=== PATIENT | female | born 1970 | race Caucasian/White ===

== ENCOUNTER 2025-04-23 22:52 | Emergency (ER) | payer OTHER, SELFPAY ==
[2025-04-23 22:53] VITALS: BP 130/89
[2025-04-23 23:05] VITALS: BP 124/77
[2025-04-23 23:16] VITALS: BMI 27.9
[2025-04-23 23:25] LABS: Hematocrit 33.1 % (37.0-47.0); Hemoglobin 11.2 g/dL (12.0-16.0); Mean Corp Hgb Conc. 33.8 g/dL (33.0-37.0); Mean Corpuscular Volume 85.1 fL (81.0-99.0); Nucleated Red Blood Cells % 0 %; Platelet Count 250 10^3/uL (130-400); Red Cell Dist. Width 13.6 % (11.5-14.5)
--- NOTE | 2025-04-23 23:41 | ED.GENMED ---
History of Present Illness
General
Chief Complaint: Chest Pain
Source: patient
Exam Limitations: none
Time Seen by Provider: 04/23/25 23:26
Nursing documentation reviewed up to this point in time: agreed with
History of Present Illness
History of Present Illness:
55-year-old female with a past medical history of GERD presents ER today with concerns of chest pain. Has been present for the past 24 hours. She noticed it late last night. She reports that she thought it could be GERD but she took Pepcid
without relief. She feels like it feels different than reflux. She does not recall any heavy lifting or injury to the chest wall. She denies any epigastric discomfort. She denies any cough. She denies any numbness or tingling in her upper
extremities. She feels like the pain does not radiate to her back. The pain has intermittently improved throughout the day but has persisted making her concerned and she feels too concerned to go back to sleep this evening. The patient does take
exogenous estrogen, there is plans to get a hysterectomy in a few months. She did also take aspirin and ibuprofen for the pain without significant relief. Her son did have a pulmonary embolism at age 18 and he is on a blood thinner. They did
significant testing for him and they did not find any evidence of clotting disorder. Patient herself has no cardiac history other than a mildly bumped troponin a few years ago when she had altitude induced chest discomfort in [place].
Review of Systems
Review of Systems
All Other Systems: ROS reviewed and negative except as documented in HPI and ROS
Phy Exam
Physical Exam
Physical Exam:
General: Patient is well appearing and in no acute distress; non-toxic
Skin: Warm and dry, no rashes or lesions
Head: Normocephalic, atraumatic
Eyes: Sclera non-icteric. EOMs intact.
Cardiac: Regular rate and rhythm, no murmurs, no tenderness palpation of external chest wall
Peripheral Vascular: No lower extremity swelling or edema
Pulm: Normal respiratory effort, no wheezes, rales, rhonchi
Abdomen: No abdominal tenderness to palpation
Neuro: CN II-XII intact, no focal neurologic deficits.
Psychiatric: Appropriate mood and affect.
Scores
Heart Score for Chest Pain Patients
STEMI patient?: No
History: Slightly or Non-Suspicious
ECG: Normal
Age: >45 - <65 years
Risk Factors: No Risk Factors
Troponin: </= Normal Limit
Heart Score for Chest Pain Patients: 1
Heart Score Risk: 2.5% MACE over next 6 weeks
Course
Orders/Labs/Results
Orders:
Orders
04/23/25 22:52
Electrocardiogram (*1) Urgent
Reason for Study: Chest Pain
Cardiac Monitoring- Treatment ONCE
EKG- Treatment ONCE
IV Insert/Care/Rem.- Treatment PRN
O2 Therapy [RESP] Urgent
Titrate/Wean O2 to maintain O2 sat greater than (%): 90
Special Instructions: Maintain sats >/=90%
Pulse Ox/spot Check [RESP] Urgent
Quantity: 1
Special Instructions: ON ROOM AIR
04/23/25 22:57
Test Result ONCE
04/23/25 23:15
Complete Blood Count/With Diff Urgent
Comprehensive Metabolic Panel Urgent
HCG, Serum Qualitative Screen Urgent
Lipase Urgent
Comment: ADD ON
Troponin I Urgent
04/23/25 23:55
D-Dimer Urgent
04/23/25 23:58
Add On- LAB Urgent
Tests Added?: lipase
04/24/25 00:54
CT Chest PE Study Urgent
Comment:
Reason For Exam: chest pain
Abnormal Lab Results
04/23/25 04/24/25
23:15 00:00
RBC 3.89 L 10^6/uL
(4.20-5.40)
Hgb 11.2 L g/dL
(12.0-16.0)
Hct 33.1 L %
(37.0-47.0)
D-Dimer 0.65 H ug/mlFEU
(0.00-0.50)
04/23/25 23:15
04/23/25 23:15
Vital Signs
Initial and Last Documented VS:
Initial Vital Signs
Temp Pulse Resp BP Pulse Ox
97.8 F 68 20 130/89 98
04/23/25 22:53 04/23/25 22:53 04/23/25 22:53 04/23/25 22:53 04/23/25 22:53
Last Documented Vital Signs
Temp Pulse Resp BP Pulse Ox
97.8 F 58 15 128/76 99
04/23/25 22:53 04/24/25 02:30 04/24/25 02:30 04/24/25 02:11 04/24/25 02:30
MDM/Problems Addressed
Differential Diagnosis Includes:
The Differential Diagnosis includes, in no particular order and is not limited to:
- Myocardial infarction
- Pulmonary embolism
- Gastroesophageal reflux disease (GERD)
- Musculoskeletal chest pain
- Pericarditis
- Esophageal spasm
- Aortic dissection
- Costochondritis
- Panic attack
- Cardiac arrhythmia
MDM/Problems Addressed:
Chest pain: The patient, a 55-year-old female, presented to the emergency department with chest pain described as tightness and pressure, differing from her known experience with heartburn. She reported associated transient arm pain and a feeling of
heightened respiratory awareness. Family history includes her sons recent unprovoked clotting disorder. She was advised on the potential need for a D-dimer test and chest X-ray to explore the etiology of her symptoms further. Her physical exam is
unremarkable and reassuring
D-dimer was 0.65. She was sent for CAT scan which shows no evidence of PE or aortic dissection. ECG no ischemic changes. Patient's pain has been steadily improving while in the ER. Suspect either GERD versus costochondritis. Patient declining
management for symptoms at this time. Patient will follow-up with cardiology. She does had a coronary artery calcium score scheduled with her PCP next week. She will continue to monitor her symptoms. Discussed tricked return return precautions.
Patient stable for discharge.
Chronic conditions affecting care:
GERD, HLP, HTN
*Pulse Oximetry
SaO2: 97
Oxygen Mode of Delivery: Room air
Patient hypoxic: no
*EKG
Interpreted by ED Provider?: Yes
EKG Intrepretation Date: 04/24/25
Interpretation: normal
Comparison EKG: no changes
Heart Rate: 55
Rate: normal
Rhythm: sinus
[place]: normal axis
Interval: normal interval
QRS Pattern: normal QRS
*Critical Care Note
Total Time (30-74mins, 75-104mins- exclusive of procedures): Not Applicable
Update Note
Update Note:
2:20 am: Update, patient feeling well, awaiting results of CT scan, patient reports that her pain is minimal at this time and is just some mild discomfort that she noticed
We did discuss trialing GI medications and anti-inflammatories at this time but patient states that she feels well and would rather wait for the CT scan
Troponin undetectable
ED Attending Note
-
Portions of this chart may have been created with voice recognition software.� Occasional wrong word or��sound alike� substitutions may have occurred due to the inherent limitations of voice recognition software.
Discharge Plan
Departure
Patient Disposition: Home (Routine Discharge)
Date of Disposition: 04/24/25
Time of Disposition: 02:45
Patient with high blood pressure during this ER visit?: Yes
Condition: Good
Discharge Problem:
Chest pain
Instructions: Chest Pain DCA Follow Up, BLOOD PRESSURE
Prescriptions:
No Action
cetirizine [Zyrtec] 10 mg Tablet
10 mg PO HS
norethindrone-e.estradiol-iron [Aurovela Fe 1-20 (28)] 1 mg-20 mcg (21)/75 mg (7) Tablet
1 tab PO DAILY
famotidine [Pepcid] 20 mg Tablet
20 mg PO PRN PRN (Reason: gerd)
montelukast [Singulair] 10 mg Tablet
10 mg PO HS
vitamin B complex Capsule
1 cap PO .OCCASIONALLY
Referrals:
Dima Kim MD [Family Provider, Family Practice]
Activity Restrictions/Additional Instructions:
As discussed, please follow-up with your scheduled coronary artery calcium test and please consider cardiology evaluation. Please continue monitor your symptoms. You can do a PPI trial as discussed.
PLEASE RETURN TO ER IF YOU DEVELOP DIZZINESS, LIGHTHEADEDNESS, FAINTING SPELLS, ABDOMINAL PAIN, TRACTABLE NAUSEA OR VOMITING, BLOOD IN YOUR STOOLS, DARK TARRY STOOLS, JAW PAIN, LEFT ARM PAIN, OR ANY OTHER SIGNS OR SYMPTOMS WORRISOME TO YOU.
Interventions
Interventions:
*Risk Screen - Suicide Last Done: 04/23/25 22:53
*General Assessment Last Done: 04/23/25 23:16
*Neglect/Abuse Screening Last Done: 04/23/25 22:53
*ED COVID-19 Vaccine History Last Done: 04/23/25 23:16
*ED Influenza Vaccine History Last Done: 04/23/25 23:16
[facility] Fall Risk Assessment Tool Last Done: 04/23/25 23:40
*Nursing Disposition Last Done: 04/24/25 02:44
ED- Cardiac Assessment Last Done: 04/23/25 23:32
Discharge Date and Time
Discharge Date/Time: 04/24/25 02:50
Print Language: [id number]
[2025-04-23 23:45] LABS: HCG, Serum Qualitative Screen Negative
[2025-04-23 23:48] LABS: Troponin I < 0.012 ng/ml
[2025-04-23 23:52] LABS: ALT (SGPT) 13 U/L (0-35); AST (SGOT) 17 U/L (14-36); Albumin 3.9 g/dl (3.5-5.0); Alkaline Phosphatase 56 U/L (38-126); Blood Urea Nitrogen 15 mg/dl (7-17); Calcium 9.2 mg/dl (8.4-10.2); Carbon Dioxide 23 mmol/L (22-30); Chloride 106 mmol/L (98-107); Estimated Creatinine Clearance 81 ml/min; Glucose 98 mg/dl (70-99); Potassium 3.8 mmol/L (3.5-5.1); Sodium 135 mmol/L (135-145); Total Protein 6.5 g/dl (6.3-8.2); eGFR > 60.00
[2025-04-24] VITALS: BP 117/77
[2025-04-24 00:13] LABS: Lipase 103 U/L (23-300)
[2025-04-24 00:17] LABS: D-Dimer 0.65 ug/mlFEU (0.00-0.50)
[2025-04-24 01:00] VITALS: BP 123/71
[2025-04-24 02:11] VITALS: BP 128/76
== END 2025-04-24 02:50 | disposition home or self-care (01) ==
LOC: EMR 22:52
PROVIDERS: Physician Assistant; Student in an Organized Health Care Education/Training Program; EMERGENCY PHYSICIAN Emergency Medicine; FAMILY PHYSICIAN Family Medicine
DX: R07.9 Chest pain, unspecified (principal); E78.5 Hyperlipidemia, unspecified; I10 Essential (primary) hypertension; K21.9 Gastro-esophageal reflux disease without esophagitis
CPT/HCPCS: 99284; 71275; 80053; 83690; 84484; 84703; 85025; 85379; 93005; Q9967